=== PATIENT | female | born 1965 | race Caucasian/White ===

== ENCOUNTER 2021-04-15 04:39 | Outpatient (CLI) | payer OTHER, SELFPAY ==
[2021-04-15 04:53] VITALS: BP 138/87; PULSE 88; RESP 20; TEMP 36.6; O2SAT 97; BMI 24.0
--- NOTE | 2021-04-15 05:08 | AMB.MCA ---
Patient Information COVID 19 common symptoms: positive fever(s), chills, cough, non-productive cough, fatigue, body aches, headache(s), loss of sense of smell and/or taste and nasal congestion COVID 19 other sytmptoms: negative requiring oxygen Severity: mild Treatment prior to arrival: none [facility] COVID test results: No Data to Display Criteria/Plan Inclusion/Exclusion Criteria weight >/= 40kg, + direct test </= 10 days ago and symptom onset </= 10 days ago age >/= 55 and has COPD/lung diease (Newer criteria for inclusion include chronic respiratory illnesses such as ) not requiring hospitalization, not requiring oxygen (if not chronically on oxygen) and no increase oxygen requirement (if chronically on oxygen) Patient education patient/family/caregiver received/reviewed fact sheet, Emergency Use Authorization/unapproved drug status discussed with patient/family/caregiver, alternatives to this treatment discussed with patient/family/caregiver, risks and benefits of medication reviewed with patient/family/caregiver, patient/family/caregiver given opportunity for questions, which were answered and patient consents to receiving Monoclonal Antibody Treatment Plan for treatment Meets criteria for Monoclonal Antibody infusion Ordering Monoclonal Antibody infusion for today
[2021-04-15 08:00] VITALS: BP 124/73; PULSE 93; RESP 18; O2SAT 98
[2021-04-15 08:22] VITALS: BP 103/74; PULSE 79; RESP 18; O2SAT 98
--- NOTE | 2021-04-23 15:58 | DCPLANNER ---
manager ui had message that patient had received the monoclonal antibody infusion. manager ui called to check on patient to see how patient was feeling after receiving the infusion. Patient stated that she his feeling much better. That before the infusion patient had a cough, she had a fever, chills, she was sneezing, her body and her joints ached and she stated that she hurt all over. Patient stated that after the infusion she is feeling much better, she stated that she has cotton mouth really bad, she still has a cough, she has not had a fever. Patient stated that she is feeling much better overall.
== END 2021-04-15 04:40 | disposition home or self-care (01) ==
LOC: ER 04:41
PROVIDERS: Visit Provider Nurse Practitioner Family
DX: U07.1 COVID-19 (principal)